=== PATIENT | male | born 1965 ===

== ENCOUNTER → 2017-07-06 | Day surgery (SDC) | payer OTHER | END | disposition home or self-care (01) | LOC: ADM 06-28 09:45 → AMB-ENDOS 06:52 | DX: D12.2 Benign neoplasm of ascending colon (principal); K64.1 Second degree hemorrhoids; K57.30 Diverticulosis of large intestine without perforation or abscess without bleeding; Z86.010 Personal history of colon polyps ==

== ENCOUNTER 2017-08-14 11:30 | Inpatient (IN) | payer OTHER ==
[~2017-08-14] VITALS: Ht 167.6 cm; Wt 93.4 kg
[2017-08-14] MEDS ORDERED: EFFEXOR XR150 MG PO (16:03)
[2017-08-14] MEDS ORDERED: TRAZODONE HCL150 MG PO (16:03)
[2017-08-14] MEDS ORDERED: CRESTOR20 MG PO (16:03)
[2017-08-14] MEDS ORDERED: KOMBIGLYZE XR1 EAC1 PO (16:04)
[2017-08-14] MEDS ORDERED: RISPERDAL1 MG PO (16:05)
[2017-08-14] MEDS ORDERED: LISINOPRIL10 MG PO (16:05)
[2017-08-14] MEDS ORDERED: ASA81 MG PO (16:05)
[2017-08-14] MEDS ORDERED: ALLOPURINOL300 MG PO (16:05)
[2017-08-14] MEDS ORDERED: LATANOPROST2.5 ML OP (16:06)
[2017-08-14] MEDS ORDERED: TRIGLIDE160 MG PO (16:06)
[2017-08-14] MEDS ORDERED: TUJEO IJ (16:07)
== END 2017-08-24 18:33 | disposition home or self-care (01) | DRG 331 ==
LOC: O/R 08-21 08:21 → SURG 08-21 08:21
PROVIDERS: Colon & Rectal Surgery
PROC: 07TC4ZZ Resection of Pelvis Lymphatic, Percutaneous Endoscopic Approach (ICD-10-PCS; 2017-08-21)
PROC: 0DBU4ZZ Excision of Omentum, Percutaneous Endoscopic Approach (ICD-10-PCS; 2017-08-21)
PROC: 0DTF4ZZ Resection of Right Large Intestine, Percutaneous Endoscopic Approach (ICD-10-PCS; principal; 2017-08-21 13:00)
DX: D12.2 Benign neoplasm of ascending colon (principal); E66.09 Other obesity due to excess calories; F41.8 Other specified anxiety disorders; I10 Essential (primary) hypertension; E11.9 Type 2 diabetes mellitus without complications; E78.4 Other hyperlipidemia

== ENCOUNTER → 2018-09-27 | Day surgery (SDC) | payer OTHER ==
[~2018-09-27] MED LIST: ALLOPURINOL300 MG PO; ASA81 MG PO; CRESTOR20 MG PO; EFFEXOR XR150 MG PO; KOMBIGLYZE XR1 EAC1 PO; LATANOPROST2.5 ML OP; LISINOPRIL10 MG PO; RISPERDAL1 MG PO; TRAZODONE HCL150 MG PO; TRIGLIDE160 MG PO; TUJEO IJ
== END | disposition home or self-care (01) ==
LOC: ADM 09-24 11:30 → CIR.AMB 06:56
DX: K64.1 Second degree hemorrhoids (principal); K92.1 Melena; Z86.010 Personal history of colon polyps